=== PATIENT | female | born 2000 | race Caucasian/White ===

== ENCOUNTER 2023-03-25 03:34 | Emergency (ER) | payer BC ==
[~2023-03-25] VITALS: Ht 170.2 cm; Wt 70.3 kg
[2023-03-25 03:53] VITALS: BP 126/73; PULSE 109; RESP 16; TEMP 96.7; O2SAT 100
[2023-03-25] MEDS ORDERED: NACL 0.9% 1,000 ML IV ONE (04:15)
[2023-03-25] MEDS ORDERED: ONDANSETRON 4 MG/2 ML VIAL IVP ONE (04:15)
[2023-03-25 04:46] VITALS: BP 116/73; PULSE 73; RESP 16; O2SAT 99
== END 2023-03-25 06:28 | disposition home or self-care (01) ==
LOC: MED 03:34
DX: F10.129 Alcohol abuse with intoxication, unspecified (principal); E78.5 Hyperlipidemia, unspecified; Y90.9 Presence of alcohol in blood, level not specified
CPT/HCPCS: 96361; 96374; 99283; J2405; J7030